=== PATIENT | female | born 1995 | race Caucasian/White ===

== ENCOUNTER 2021-09-09 15:45 | Emergency (ER) | payer SELFPAY ==
--- NOTE | 2021-09-09 15:50 | ED.URI ---
HPI - URI/Sore Throat General Chief Complaint: Upper Respiratory Infection Stated Complaint: Sore Throat Time Seen by Provider: 09/09/21 15:50 Source: patient and RN notes reviewed History of Present Illness HPI Narrative: Patient is a 26-year-old female who presents the urgent care with complaints of hoarseness and sore throat since Friday. 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 Patient states she is been gargling with salt water and using Vicks cough medication. Patient reports of a slight cough but mainly just the sore throat. Patient denies any fever, chills, nausea, vomiting. No other acute complaints. No acute distress noted. Patient aware of the plan of care. Some parts of this dictation were generated by voice recognition software and may contain typographical and/or grammatical inaccuracies. Related Data Allergies Allergy/AdvReac Type Severity Reaction Status Date / Time No Known Allergies Allergy Unverified 09/09/21 15:47 Review of Systems Review of Systems: CONSTITUTIONAL: Denies fever, chills, or sweats. EYES: Denies visual changes, redness, or discharge. ENT: Denies rhinorrhea, congestion, otalgia. Reports of sore throat CARDIOVASCULAR: Denies chest pain, palpitations, or edema. RESPIRATORY: Denies cough or dyspnea. GASTROINTESTINAL: Denies abdominal pain, nausea, vomiting, or diarrhea. GENITOURINARY: Denies dysuria or hematuria. SKIN: Denies rash or itching. MUSCULOSKELETAL: Denies back pain, joint pain, or myalgia. NEUROLOGIC: Denies headache, numbness, or weakness. All other systems reviewed are negative, except as documented in HPI. PMFSH Comments At the time of my signature, I reviewed and agree with the nursing past medical, surgical, social, and family history. There is no relevant family history pertinent to the patient complaint. Exam Narrative: GENERAL: This is a well-nourished, well-developed patient, in no apparent distress. HEAD: normocephalic, atraumatic. EYES: PERRL. Sclera clear/white. Vision is grossly intact. EARS: External ears normal, auditory canals clear and without drainage, TMs normal without perforation. Hearing grossly intact. NOSE: External nose normal with no obvious nasal discharge, nares without redness, no rhinorrhea. THROAT: Mucous membranes moist, mild to moderate erythema noted posterior oropharynx with mild bilateral tonsillar edema without exudate or ulceration. Moderate postnasal drainage. NECK: Neck supple, non-tender without lymphadenopathy CARDIOVASCULAR: Regular rate and rhythm without murmurs, gallops, or rubs. RESPIRATORY: Clear to auscultation. Breath sounds equal bilaterally. No wheezes, rales, or rhonchi. SKIN: warm, intact with no suspicious lesions or rash, good texture and turgor. NEURO: awake, alert, and oriented to person, place and time. There were no obvious focal neurologic abnormalities. EXTREMITIES: No clubbing, cyanosis, or edema. Course Vital Signs Vital signs: Vital Signs Temperature 97.9 F 09/09/21 15:56 Pulse Rate 80 09/09/21 15:56 Respiratory Rate 20 09/09/21 15:56 Blood Pressure 125/96 H 09/09/21 15:56 Pulse Oximetry 99 09/09/21 15:56 Temperature 97.9 F 09/09/21 15:56 Pulse Rate 80 09/09/21 15:56 Respiratory Rate 20 09/09/21 15:56 Blood Pressure 125/96 H 09/09/21 15:56 Pulse Oximetry 99 09/09/21 15:56 Reviewed-patient is informed that they may have pre-hypertension or hypertension based on a blood pressure reading in the department. I recommend the patient call the primary care provider listed on their discharge instructions or a physician of their choice this week to arrange follow-up for further evaluation of possible pre-hypertension or hypertension. MDM - URI/Sore Throat MDM Narrative Medical decision making narrative: Reviewed lab results with the patient. She is aware that strep swab was negative. Educ
[2021-09-09 15:56] VITALS: BP 125/96; PULSE 80; RESP 20; TEMP 36.6; O2SAT 99
== END 2021-09-09 16:34 | disposition home or self-care (01) ==
PROVIDERS: Emergency Provider Nurse Practitioner Family; PCP Family Medicine
DX: J02.9 Acute pharyngitis, unspecified (principal)
CPT/HCPCS: 87081; 87880; 99203; G0463

== ENCOUNTER 2021-12-30 15:50 | Emergency (ER) | payer OTHER, MEDICAID, SELFPAY ==
--- NOTE | 2021-12-30 15:55 | ED.URI ---
HPI - URI/Sore Throat General Chief Complaint: Upper Respiratory Infection Stated Complaint: sore throat Time Seen by Provider: 12/30/21 15:55 Source: patient and RN notes reviewed History of Present Illness HPI Narrative: Patient is a 26-year-old female who presents the urgent care with complaints of a sore throat since yesterday. 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 Patient denies of any fever, chills, nausea, vomiting or other upper respiratory complaints. Patient states she took NyQuil last night. Denies of any other ill contacts. Patient states she is not concerned about Covid. No other acute complaints. No acute distress noted. Patient aware of the plan of care. Some parts of this dictation were generated by voice recognition software and may contain typographical and/or grammatical inaccuracies. Related Data Home Medications Medication Instructions Recorded Confirmed No Home Medications 12/30/21 12/30/21 Allergies Allergy/AdvReac Type Severity Reaction Status Date / Time No Known Allergies Allergy Verified 12/30/21 16:04 Review of Systems Review of Systems: CONSTITUTIONAL: Denies fever, chills, or sweats. EYES: Denies visual changes, redness, or discharge. ENT: Denies rhinorrhea, congestion, otalgia. Reports of sore throat CARDIOVASCULAR: Denies chest pain, palpitations, or edema. RESPIRATORY: Denies cough or dyspnea. GASTROINTESTINAL: Denies abdominal pain, nausea, vomiting, or diarrhea. GENITOURINARY: Denies dysuria or hematuria. SKIN: Denies rash or itching. MUSCULOSKELETAL: Denies back pain, joint pain, or myalgia. NEUROLOGIC: Denies headache, numbness, or weakness. All other systems reviewed are negative, except as documented in HPI. PMFSH Comments At the time of my signature, I reviewed and agree with the nursing past medical, surgical, social, and family history. There is no relevant family history pertinent to the patient complaint. Exam Narrative: GENERAL: This is a well-nourished, well-developed patient, in no apparent distress. HEAD: normocephalic, atraumatic. EYES: PERRL. Sclera clear/white. Vision is grossly intact. EARS: External ears normal, auditory canals clear and without drainage, TMs normal without perforation. Hearing grossly intact. NOSE: External nose normal with no obvious nasal discharge, nares without redness, no rhinorrhea. THROAT: Mucous membranes moist. Mild erythema noted posterior oropharynx with moderate postnasal drainage NECK: Neck supple, non-tender without lymphadenopathy CARDIOVASCULAR: Regular rate and rhythm without murmurs, gallops, or rubs. RESPIRATORY: Clear to auscultation. Breath sounds equal bilaterally. No wheezes, rales, or rhonchi. SKIN: warm, intact with no suspicious lesions or rash, good texture and turgor. NEURO: awake, alert, and oriented to person, place and time. There were no obvious focal neurologic abnormalities. EXTREMITIES: No clubbing, cyanosis, or edema. Course Course Level of Care: Express Care Visit Vital Signs Vital signs: Vital Signs Temperature 97.8 F 12/30/21 16:00 Pulse Rate 83 12/30/21 16:00 Respiratory Rate 16 12/30/21 16:00 Blood Pressure 172/69 H 12/30/21 16:00 Pulse Oximetry 100 12/30/21 16:00 Temperature 97.8 F 12/30/21 16:00 Pulse Rate 83 12/30/21 16:00 Respiratory Rate 16 12/30/21 16:00 Blood Pressure 172/69 H 12/30/21 16:00 Pulse Oximetry 100 12/30/21 16:00 Reviewed-patient is informed that they may have pre-hypertension or hypertension based on a blood pressure reading in the department. I recommend the patient call the primary care provider listed on their discharge instructions or a physician of their choice this week to arrange follow-up for further evaluation of possible pre-hypertension or hypertension. MDM - URI/Sore Throat MDM Narrative Medical decision making narrative: Reviewed lab results with the patient. She is aware
[2021-12-30 16:00] VITALS: BP 172/69; PULSE 83; RESP 16; TEMP 36.6; O2SAT 100
== END 2021-12-30 16:20 | disposition home or self-care (01) ==
PROVIDERS: Emergency Provider Nurse Practitioner Family; PCP Family Medicine
DX: J02.9 Acute pharyngitis, unspecified (principal)
CPT/HCPCS: 87081; 87880; 99213; G0463

== ENCOUNTER 2024-03-16 12:57 | Emergency (ER) | payer MEDICAID, SELFPAY ==
[2024-03-16 13:06] VITALS: BP 136/82; PULSE 71; RESP 20; TEMP 36.8; O2SAT 100
--- NOTE | 2024-03-16 13:34 | ED.GENADULT ---
HPI - General Adult General Chief complaint: Dental/Oral Stated complaint: Tooth pain Time Seen by Provider: 03/16/24 13:34 Source: patient, RN notes reviewed and old records reviewed Mode of arrival: ambulatory Limitations: no limitations History of Present Illness HPI narrative: 46-year-old female express care for complaint of right lower molar pain radiating into right jaw for 1 week. Patient states that the tooth fractured last week while eating. Patient has been treating at home with ibuprofen and Orajel with some relief. Patient states that she has a dentist appointment set for April 19 as that was the earliest that she could get in. Patient denies fever, nausea, foul taste in, allergies. Patient able to tolerate fluids by mouth. Related Data Allergies Allergy/AdvReac Type Severity Reaction Status Date / Time No Known Allergies Allergy Verified 03/16/24 13:15 Review of Systems Review of Systems: All systems reviewed & are unremarkable except as noted in HPI and below Constitutional: Constitutional: Reports no additional constitutional complaints Eyes: Eyes: Reports no additional eye complaints ENT: Reports as per HPI and Reports dental pain Cardiovascular: Cardiovascular: Reports no additional cardiovascular complaints, Denies chest pain and Denies dyspnea Respiratory: Respiratory: Reports no additional respiratory complaints, Denies cough and Denies dyspnea Musculoskeletal: Musculoskeletal: Reports no additional musculoskeletal complaints Neurologic: Reports system reviewed and no additional complaints, except as documented Psychiatric: Psychiatric: Reports no additional psychiatric complaints PMFSH Comments At the time of my signature, I reviewed and agree with the nursing past medical, surgical, social, and family history. There is no relevant family history pertinent to the patient complaint. Exam Const: General: cooperative, comfortable, no acute distress, alert and well nourished Nutritional Appearance: well nourished Orientation/consciousness: patient oriented x3 Limitations: no limitations HENMT: Head: normal to inspection Ears: external ears normal Face/Nose/Sinus: Normal external nose present, Normal nares present, normal facial exam, No erythema and No edema Face and sinus: normal facial exam, no erythema and no edema Mouth: Yes Normal oral and palatal mucosa present Teeth and gingiva: abnormal tooth and associated gingiva, caries, gingiva abnormal edematous and diffusely erythematous; without any purulent discharge, multiple restorations and poor dentition Teeth image: 1. Fractured tooth Eyes: General: appearance normal, both eyes and all related structures Neck: Neck: normal visual inspection, full ROM and no meningeal signs Lymphatic: no lymphadenopathy noted and no lymphedema noted Chest: Chest palpation & inspection: normal inspection of the chest Resp: Effort & Inspection: normal respiratory effort and able to speak in complete sentences Auscultation: clear to auscultation bilaterally Cardio: Jugular venous distension: no JVD Rate: regular rate Rhythm: regular rhythm Back/Spine/Pelvis: Cervical Spine: cervical ROM normal Skin: General skin exam: normal color, no rashes or lesions noted and turgor normal Neuro: General: patient oriented x3, gait normal, moves all extremities and no meningeal signs Speech: normal speech Gait exam (Neuro): Normal gait present Extrem: General: normal to inspection, full ROM and capillary refill normal Psych: Appearance: grossly normal and well kempt Course Course Emergency Course: Some parts of this dictation were generated by voice recognition software and may contain typographical and/or grammatical inaccuracies. Level of Care: Express Care Visit Vital Signs Vital signs: Vital Signs Temperature 36.8 C 03/16/24 13:06 Pulse Rate 71 03/16/24 13:06 Respiratory Rate 20 03/16/24 13:06 Blood Pressure 136/82
== END 2024-03-16 13:43 | disposition home or self-care (01) ==
PROVIDERS: Emergency Provider Nurse Practitioner Family; PCP Family Medicine
DX: K04.7 Periapical abscess without sinus (principal); S02.5XXA Fracture of tooth (traumatic), initial encounter for closed fracture; X58.XXXA Exposure to other specified factors, initial encounter
CPT/HCPCS: 99213; G0463

== ENCOUNTER 2024-07-01 12:17 | Emergency (ER) | payer OTHER, SELFPAY ==
[2024-07-01 12:26] VITALS: BP 127/78; PULSE 85; RESP 20; TEMP 36.3; O2SAT 100
--- NOTE | 2024-07-01 13:11 | ED.GENADULT ---
HPI - General Adult General Chief complaint: Nausea/Vomiting/Diarrhea Stated complaint: flu symptoms Time Seen by Provider: 07/01/24 13:11 Source: patient, RN notes reviewed and old records reviewed Mode of arrival: ambulatory Limitations: no limitations History of Present Illness HPI narrative: 29-year-old female presents to the [facility] with complaints of abdominal discomfort, nausea vomiting diarrhea. Symptoms started about 3 days ago. Worsening symptoms today, 3 episodes of a straight water diarrhea 2 episodes of vomiting. Denies any urinary symptoms. States that the day before was at a [employer] and ate some hot dogs Related Data Home Medications Medication Instructions Recorded Confirmed No Home Medications 07/01/24 07/01/24 Allergies Allergy/AdvReac Type Severity Reaction Status Date / Time No Known Allergies Allergy Verified 07/01/24 12:50 Review of Systems Review of Systems: All systems reviewed & are unremarkable except as noted in HPI and below Constitutional: Constitutional: Reports no additional constitutional complaints Eyes: Eyes: Reports no additional eye complaints ENT: Reports system reviewed and no additional complaints, except as documented Cardiovascular: Cardiovascular: Reports no additional cardiovascular complaints, Denies chest pain and Denies dyspnea Respiratory: Respiratory: Reports no additional respiratory complaints, Denies chest congestion, Denies cough and Denies dyspnea Gastrointestinal: Gastrointestinal: Reports as per HPI, Reports abdominal pain, Reports diarrhea, Reports nausea and Reports vomiting Musculoskeletal: Musculoskeletal: Reports no additional musculoskeletal complaints Integumentary/Breasts: Skin/Breast: Reports system reviewed and no additional complaints, except as docu Neurologic: Reports system reviewed and no additional complaints, except as documented Psychiatric: Psychiatric: Reports no additional psychiatric complaints Allergic/Immunologic: Allergic/Immunologic: Reports no additional allergic/immunologic complaints PMFSH Comments At the time of my signature, I reviewed and agree with the nursing past medical, surgical, social, and family history. There is no relevant family history pertinent to the patient complaint. Exam Const: General: cooperative, healthy appearing, comfortable, no acute distress, well developed, alert and well nourished Nutritional Appearance: well nourished and obese morbidly obese Orientation/consciousness: patient oriented x3 Limitations: no limitations HENMT: Head: normal to inspection Ears: hearing grossly normal bilaterally and external ears normal Face/Nose/Sinus: Normal external nose present, Normal nares present, Normal nasal mucous membranes and turbinates present, normal facial exam and face symmetric Face and sinus: normal facial exam and face symmetric Mouth: Yes Normal oral and palatal mucosa present, Yes lip normal and Yes tongue normal Eyes: General: appearance normal, both eyes and all related structures Alignment and Position: alignment normal Periorbital: periorbital findings normal Pupils: Equal, round and reactive pupils present EOM: EOMs intact bilaterally Neck: Neck: normal visual inspection, full ROM, no lymphadenopathy and no meningeal signs Chest: Chest palpation & inspection: normal inspection of the chest Resp: Effort & Inspection: normal respiratory effort and able to speak in complete sentences Auscultation: clear to auscultation bilaterally, no crackles, no rales, no rhonchi and no wheezes Cardio: Rate: regular rate Rhythm: regular rhythm GI: GI Palp: Yes abdominal tenderness (Right upper quadrant/epigastric) and Yes Soft to palpation Auscultation: normal bowel sounds : General: Yes no CVA tenderness Skin: General skin exam: normal color and no rashes or lesions noted Lesions: no lesions Rashes: no rashes Trauma: no lacerations or abrasions Wounds: no wounds Neuro: Gen
[2024-07-01 13:22] LABS: EDINFLUASCREEN Negative; EDINFLUBSCREEN Negative
== END 2024-07-01 13:30 | disposition short-term general hospital (02) ==
PROVIDERS: Emergency Provider Nurse Practitioner; PCP Family Medicine
DX: R10.11 Right upper quadrant pain (principal); Z20.822 Contact with and (suspected) exposure to COVID-19
CPT/HCPCS: 87426; 87804; 99213; G0463

== ENCOUNTER 2025-06-26 10:12 | Emergency (ER) | payer OTHER, SELFPAY ==
--- NOTE | 2025-06-26 10:13 | ED.URI ---
HPI - URI/Sore Throat General Chief Complaint: Upper Respiratory Infection Stated Complaint: Sore Throat/Cough Time Seen by Provider: 06/26/25 10:33 Source: patient and RN notes reviewed Mode of arrival: ambulatory Limitations: no limitations History of Present Illness HPI Narrative: 30-year-old female presents concern for 2 day history of runny nose, cough and sore throat when she coughs. She denies fever. Reports body aches and mild headache. She has taken antihistamines and ibuprofen. She denies known sick contacts. MD elicited complaint: cough and sore throat Related Data Allergies Allergy/AdvReac Type Severity Reaction Status Date / Time No Known Allergies Allergy Verified 07/01/24 12:50 Review of Systems Review of Systems: CONSTITUTIONAL: Denies malaise, chills, sweats, or fever. EYES: Denies visual changes, redness, or discharge. ENT: Reports rhinorrhea, congestion, and sore throat. CARDIOVASCULAR: Denies chest pain, palpitations, or edema. RESPIRATORY: Reports cough. Denies dyspnea. GASTROINTESTINAL: Denies abdominal pain, nausea, vomiting, diarrhea SKIN: Denies rash or itching. MUSCULOSKELETAL: Reports myalgia. NEUROLOGIC: Reports headache. All systems reviewed & are unremarkable except as noted in HPI and below PMFSH Comments At time of signature, agree with nursing past medical, surgical, social and family history. There is no relevant family history pertinent to the presenting complaint Exam Narrative: GENERAL: Well-appearing, well-nourished, and in no acute distress. HEAD: Normocephalic EYES: PERRLA, conjunctivae clear ENT: Nares clear, for discharge. Mucous membranes moist. TM pearly estevez with sharp light reflex bilaterally; no tragal tenderness. Oropharynx not erythematous without lesions. Tonsils not enlarged and without exudate, no drooling, no hoarseness, no trismus, uvula midline. NECK: Supple. No lymphadenopathy CHEST: Clear to auscultation, breath sounds equal. No wheezing, rhonchi, rales, or stridor. No respiratory distress, speaks in full sentences. Cough noted HEART: Regular rate and rhythm. No murmur heard. SKIN: Warm, dry, no rash. NEURO: Alert and oriented x3. PSYCH: Normal mood and affect Course Course Emergency Course: Patient is aware of diagnosis, understands and agrees to treatment plan. Anticipatory guidance given. Patient agrees to follow-up as directed and is aware of reasons to seek care at the emergency department. Portions of this record may have been created with voice recognition software Level of Care: Express Care Visit Vital Signs Vital signs: Reviewed. MDM - URI/Sore Throat MDM Narrative Medical decision making narrative: Differential diagnosis considered: Neal virus, strep pharyngitis, allergic rhinitis, upper respiratory tract infection, sinusitis, rhinosinusitis, nasopharyngitis. viral pharyngitis, otitis media, otitis externa, pneumonia, bronchitis, viral cough syndrome, viral syndrome, and influenza. Exam findings show no acute concerns or changes; patient is non-toxic appearing and is in no distress. Patient is appropriate for outpatient treatment and follow-up. Lab Data Attestation: I reviewed the patient's lab results. Critical Care Time Critical Care Time Critical Care Time: No Discharge Plan Discharge Clinical Impression: Upper respiratory infection Patient Disposition: Home Condition: Stable Instructions: Upper Respiratory Infection (ED) Additional Instructions: Viral illness may last between 7-21 days; antibiotics do not cure viral illness and are NOT recommended at this time. Recommend antihistamine such as Benadryl at night time and Zyrtec or [place] during the day Cough syrup may cause drowsiness; avoid driving or take it at night time. Also, recommend symptomatic treatment includes: rest, fluids, and increase humidity of the air at home. Recommend Acetaminophen as directed on the bottle to reduce fever, pain, headache. Avoid smoking/second-hand smoke. Please schedule a follow-up visit with your personal physician for further evaluation and treatment within 3-5days. Including recheck and discussion of your blood pressure. If your symptoms persist, change or worsen significantly before you can contact your personal physician then please, without delay, go to the emergency department for further evaluation. Patient Language: Italian Prescriptions: New ipratropium bromide 21 mcg (0.03 %) spray,non-aerosol 2 spray NASAL TID PRN (Reason: nasal drainage) Qty: 30 0RF Rx Instructions: administer into each nostril promethazine-DM 6.25-15 mg/5 mL syrup 5 ml PO Q4-6H PRN (Reason: cough) Qty: 120 0RF methylprednisolone [Medrol (Macho)] 4 mg tablets,dose pack See Rx Instructions .ROUTE .COMPLEX Qty: 21 0RF Rx Instructions: orally per package directions Follow-up/Referrals: Harms,Feroz Wheeler M.D. [Primary Care Provider] Time of Disposition: 10:38
--- OUTSIDE RECORDS SUMMARY | 2025-06-26 10:16 | XMS_ITS | Clinical Summary ---
Author Organization [facility] Address [address] [place] [address] Care Team Providers Care Alemite Operator Name Role Phone Feroz Sandhu MD Primary Care Provider [phone] Allergies No known active allergies Medications No known medications Immunizations Immunization Administration Dates Next Due TB Skin Test 12/10/2021 Social History Tobacco Use Types Packs/Day Years Used Date Smoking Tobacco: Never Smokeless Tobacco: Never Tobacco Cessation:Counseling Given: Not Answered Comments Unknown Sex and Gender Information Value Date Recorded Sex Assigned at Not on file Legal Sex Female 8:53 PM CDT Gender Identity Not on file Sexual Orientation Not on file Last Filed Vital Signs Vital Sign Reading Time Taken Comments Blood Pressure 151/113 01/19/2025 7:51 PM CDT Pulse 90 01/19/2025 7:51 PM CDT Temperature 36.8 C (98.3 F) 01/19/2025 3:48 PM CDT Respiratory Rate 18 01/19/2025 7:51 PM CDT Oxygen Saturation 100% 01/19/2025 7:51 PM CDT Inhaled Oxygen Concentration - - Weight 172.4 kg (380 lb) 01/19/2025 3:48 PM CDT Height 165.1 cm (5' 5) 01/19/2025 3:48 PM CDT Body Mass Index 63.24 01/19/2025 3:48 PM CDT Plan of Treatment Health Maintenance Due Date Last Done Comments Hepatitis C Virus (HCV) Screening 1995 Pap Smear 2016 SARS-COV-2 Immunization ( season) 2024 05/24/2022 Cervical Cancer Screening (CCS) 2025 HPV/Cotest 2025 Influenza Immunization (#1) 2025 10/03/2008 Respiratory Syncytial Virus (RSV) Immunization (Adult) (1 - 1-dose 75+ series) 2070 Hepatitis B Immunization Completed 996, 1995, 1995 Meningococcal Immunization (ACWY) Aged Out 01/23/2009 No longer eligible based on patient's age to complete this topic Human Papillomavirus (HPV) Immunization Completed 09/14/2009, 06/06/2009, 01/23/2009, Additional history exists DTaP/Tdap/Td Immunization Discontinued 2019, 07/09/2006, 06/03/2000, Additional history exists TdaP Immunization Completed 03/30/2020, 07/09/2006 Pneumococcal Immunization Combined Aged Out No longer eligible based on patient's age to complete this topic Rotavirus Immunization Aged Out No lo nger eligible based on patient's age to complete this topic Insurance MEDICAID [employer] Care Teams Alemite Operator Relationship Specialty Start Date End Date Feroz Sandhu [place] [address] PCP - General Internal Medicine 12/10/21
--- OUTSIDE RECORDS SUMMARY | 2025-06-26 10:16 | XMS_ITS | Clinical Summary ---
Author Organization [facility] [place] [facility] lt Address [address] [place] [address] Care Team Providers Care Material Handler 1St Shift Name Role Phone Feroz Sandhu MD Primary Care Provider [phone] [phone] Allergies No known active allergies Medications etonogestreL (Nexplanon) 68 mg implant Nexplanon 68 mg subdermal implant Inject by subcutaneous route. Active celecoxib (CeleBREX) 200 mg capsuleIndicat ions:Pain Take 1 capsule (200 mg total) by mouth daily 30 capsule 025 Discontin ued(Patie nt Reported) Active Problems Problem Noted Date Diagnosed Date Encounter for pre-employment health screening ex amination 06/02/2025 Assessment & Plan (06/02/2025 11:13 AM CDT): Medically cleared for work at the [facility] [employer]. TB test was done last July. Work form filled out. Orders: CBC with auto differential; Future Comprehensive metabolic panel; Future Lipid panel; Future Class 3 severe obesity due t o excess calories without serious comorbidity with body mass index (BMI) of 60.0 to 69.9 in adult 01/24/2025 Assessment & Plan (06/02/2025 11:13 AM CDT): Encouraged heart healthy diet and lifestyle. Advised 150 min/week of aerobic exercise. Assessment & Plan (03/04/2025 1:28 PM CDT): Encouraged heart healthy diet and lifestyle. Advised 150 min/week of aerobic exercise. Assessment & Plan (01/24/2025 9:24 AM CDT): Reivewed impact of increaed BMI on low back pain and encourage healthy food chocies and will target response. Screening for lipoid disorders 01/26/2024 Assessment & Plan (06/02/2025 11:13 AM CDT): Lipid panel ordered. Will continue to monitor. Orders: Lipid panel; Future Assessment & Plan (01/26/2024 8:39 AM CDT): Lipid panel ordered. Will plan accordingly once results are received. Lifestyle recommendations reviewed. Viral URI with cough 01/26/2024 Assessment & Plan (01/26/2024 8:40 AM CDT): Negative flu, COVID, strep swabs today. Reviewed OTC measures to utilize. Ensure p.o. hydration. RTC if worsening or not resolving. Red flags reviewed. Chronic right-sided low back pain with right-lorraine ed sciatica 01/26/2024 Assessment & Plan (06/02/2025 11:13 AM CDT): Not currently a problem. Will be seeing pain management soon. No longer taking Celebrex. Will continue to monitor. Assessment & Plan (06/02/2025 9:31 AM CDT): >>ASSESSMENT AND PLAN FOR CHRONIC BILATERAL LOW BACK PAIN WITHOUT SCIATICA WRITTEN ON 01/26/2024 8:40 AM BY YUNG DALE NP Recommend ibuprofen and discussed the scheduling and side effects. Also recommend heat/ice. Recommend gentle stretching exercises. Will order x-rays and refer for physical therapy. Will monitor response. Red flags reviewed. Assessment & Plan (03/04/2025 1:28 PM CDT): No relief with Medrol dose pack, Meloxicam, and other conservative measures. CT and xray showed no concerns. Will refer to pain management and start on Tramadol while waiting to get into pain. Will also change to Celebrex. Will continue with PT. Discussed Tramadol is controlled substance and will need to be seen every 3 months to get refills. Discussed risks and side-effects with medications. Will continue to monitor. Orders: Ambulatory referral to Pain Management; Future traMADoL (ULTRAM) 50 mg tablet; Take 1 tablet (50 mg total) by mouth every 8 (eight) hours as needed for pain celecoxib (CeleBREX) 200 mg capsule; Take 1 capsule (200 mg total) by mouth daily Assessment & Plan (01/24/2025 9:25 AM CDT): Continue on prednisone course and cyclobenzaprine. WIll add PT and melocima to regimen and encourage topical agents. Reivewed red flag s/s. Given finding of prbc in urin will also check ct scan to evauate for renal stones and lumbar disc disease. Marijuana user 01/16/2024 Overview (01/16/2024): Encourage cessation care following vaginal delivery 05/28 Overview (05/29/2020): # ID: Afebrile. No signs/symptoms of infection. COVID-19 negative. # Heme: EBL 300 mL. Hemodynamically stable. #Uterine atony: s/p Hemabate x1 dose # CV/Pulm: Gestational hypertension - Blood pressures well controlled on no agents. Asymptomatic, denies ARCE/RUQ pain/vision changes. CBC/CMP wnl, UPC 0.1. Declines MyHeart at this time. # GI/: Tolerating PO. Voiding spontaneously. # Pain: Controlled with above regimen. # Post DVT prophylaxis: The patient has the following MAJOR risk factors BMI >/= 40 and the following MINOR risk factors none. enoxaparin 40 mg BID ordered for VTE prophylaxis. # MOC: Desires nexplanon placement prior to discharge. # MOF: Formula feeding # Disposition: Continue routine care Elevated BP X 1 03/30/2020 Overview (03/30/2020): BP at 29 weeks with primary OB of 150/80. Repeat was within normal. No hitsory of chronic HTN with normal Bps at start of . Normotensive since then. Patient is at higher risk of hypertensive disorder but does not meet criteria at present. Will continue to follow. Assessment & Plan (05/18/2020 2:28 PM CDT): Normotensive today. Assessment & Plan (05/02/2020 1:16 PM CDT): BP wnl today, denies symptoms of preE Assessment & Plan (04/17/2020 2:22 PM CDT): BP wnl today, denies symptoms of preE Family history of cystic fibrosis 03/24/2020 Overview (03/30/2020): Distant uncle with cystic fibrosis. Reviewed inheritance pattern. Patient declines carrier screening. Refused influenza vaccine 11/20/2018 Assessment & Plan (10/04/2019 3:19 PM EMAIL MARKETING MANAGER): Discussed and the patient refuses immunization today. Educated regarding the need to vaccinate for personal protection and to limit the viruses in the community to protect those most vulnerable. Periumbilical abdominal pain 10/14/2012 Resolved Problems Problem Noted Date Diagnosed Date Resolved Date Pharyngitis 01/16/2024 01/16/2024 Low-lying placenta 01/16/2024 Overview (01/16/2024): Precautions given Follow up sonogram at 28 weeks. Morbid obesity 01/16/2024 01/26/2024 Encounter for induction of labor 05/26/2020 01/26/2024 Overview (05/26/2020): 1. Elective Induction of Labor: Admit to L&D. Consents signed and placed in chart. Send CBC/T&S. Induction of labor with misoprostol. 2. FWB: Continuous monitoring. Reactive NST 3. ID: HIV negative. GBS negative. Membrane Status: intact. 4. Indications for UDS: none 5. MOF: Plans to formula feed. 6. MOC: Plans to use nexplanon for contraception. 7. Pain management: Desires epidural when pain intolerable. 8. Post DVT prophylaxis: The patient has the following MAJOR risk factors BMI >/= 40 and the following MINOR risk factors none. enoxaparin 40 mg BID to be ordered for VTE prophylaxis. 9. COVID Test Status: Preadmission testing negative 10. MO: BMI 57. GTT negative 11. Isolated elevated BP: SBP 150s in clinic at 29 weeks, normotensive since. For labs if meets criteria for gHTN Pruritic rash 04/20/2020 01/26/2024 Overview (04/20/2020): Patient reports pruitic rash that occurs every year in the summer. Desires referral to derm. Obesity complicating pregnan cy, unspecified trimester 03/24/2020 01/26/2024 Overview (04/17/2020): BMI 60 Previously counseled Reviewed IOM weight gain guidelines. Patient reports losing 30lbs during this . Intermittent N/V, but tolerating three meals a day. Declines nutrition referral but if continued weight loss, will consider. Plan for weekly BPPs (calling referring office to see if she can do these closer to home) Assessment & Plan (05/18/2020 2:28 PM CDT): BPP 8/8 today. Low lying placenta, antepartum 03/24/2020 04/13/2020 Overview (03/30/2020): Resolved on today's US Supervision of high-risk pre gnancy, unspecified trimester 03/24/2020 01/26/2024 Overview (05/17/2020): [x] Full M Care; Referring Provider: Dr Kenji Goodwin [phone] [x] Dating Criteria: US 11/18/19 with LAZARO 06/02/20 [x] Labs: Rh [A+], Ab [negative], Rubella [immune], HIV [non-reactive], HepBSAg [negative], RPR [non-reactive], GC/CT [negative/negative] [x] Genetic Screening: declined [x] CBC/Hgb 12.6/37.8/plt 333 [x] Early 1hr GTT (if indicated) not performed [x] UCx: 11/23/19 negative [x] Pap: 11/23/19 NILM [] LD ASA (if indicated) starting at 12 weeks: 2nd Tri Labs: [] Anatomy ultrasound: Incomplete given advanced gestation [x] CBC/1hr gtt at 24-28wks: 02/16/20: 10.1/31.1/plt 275; GTT 111 [x] Tdap (27-36wks): given today 3rd Tri Labs: [] CBC/HIV/RPR: ordered [x] GBS: negative Counselling [x] MOD: Desires 39wk IOL scheduled 05/25/2020 [x] COVID testing: information provided, inbasket sent and will get testing in [facility] [x] Place of delivery: [facility] [x] MOC: counseled desires Nexplanon [x] Method of feeding: planned to bottle feed, counseling today regarding breast feeding, patient considering [x] Chainstitch Hemmer: discussed [x] PP Depression Discussed: *Patient requests female providers, reviewed that we can try to accommodate this at scheduled visits however cannot guarantee given group practice* Assessment & Plan (05/18/2020 2:28 PM CDT): Anticipatory guidance provided. IOL scheduled. Pt aware of COVID testing, already scheduled. Nexplanon PP. 11/09/2019 01/16/2024 Positive test 10/04/201901/02 Assessment & Plan (10/04/2019 3:20 PM EMAIL MARKETING MANAGER): POSITIVE urine hcg in office today. To call [facility] to set up appt. To p/u otc vitamins. Aware to improve diet, increase activity. Watch intake. Decrease caffeine, increase water intake. Not ETOH/smoking (does not smoke any longer). Menstrual period late 10/04/20192023 Viral URI 10/04/2019 01/26/2024 Assessment & Plan (10/04/2019 3:19 PM EMAIL MARKETING MANAGER): You will need to take over the counter medications: Advise to use claritin and nasal saline to help with congestions and mucus. Add flonase 1 spray per nostril daily for the next 2 weeks. Drink plenty of fluids. May take Tylenol for pain. Aware to read labels for medications safe w/. Contact the office if not better in a few days or if getting worse. If symptoms worsen or you experience shortness of breath, return to clinic or go to Er. Class 3 severe obesity due t o excess calories without serious comorbidity with body mass index (BMI) of 60.0 to 69.9 in adult 10/04/2019 Assessment & Plan (10/04/2019 3:20 PM EMAIL MARKETING MANAGER): Reviewed need to lose weight, reviewed health benefits. Reviewed recommendations for daily intake & activity 20-30 minutes/day. Discussed healthy diet and importance of regular physical activity. Morbid obesity with BMI of 50.0-59.9, adult 11/20/2018 01/26/2024 Obesity 10/14/2012 01/26/2024 Diarrhea 10/14/2012 01/26/2024 Encounters Date Type Department Care Team Description 06/02/2025 11:00 AM CDT [facility] Visit [facility] [address] [phone] Romi Redman NP Encounter for pre-employment health screening examination (Primary Dx); Chronic right-sided low back pain with right-sided sciatica; Encounter for screening for lipid disorder; Class 3 severe obesity due to excess calories without serious comorbidity with body mass index (BMI) of 60.0 to 69.9 in adult 04/26/2025 Orders Only [facility] [address] [place] [address] [facility] [address] [place] [id number] Feroz Sandhu MD Low back pain radiating to right lower extremity (Primary Dx) 04/11/2025 Orders Only [facility] [address] [phone] Feroz Sandhu MD Low back pain radiating to right lower extremity 04/07/2025 Telephone [facility] [address] [phone] Feroz Sandhu MD Recommendation Request from Last 3 Months Immunizations Immunization Administration Dates Next Due DTP 06/03/2000,05/26/1997 DTP / HiB 1995,1995,1995 DTaP 5 Pertussis 06/03/2000, 7,1995,1995, 1995 HPV, Bivalent 01/23/2009 HPV, Unspecified 09/14/2009,06/06/2009, 9 Hep A, Unspecified 03/13/2006,06/04/2005 Hep B, Adolescent or Pediatric 1995,1994,1995 Hep B, Unspecified 1995,1995, 995 HiB 06/30/1997,1995,1995 ,1995 IPV 06/03/2000,1995,1995 ,1995 Influenza, Unspecified 06/02/2025(Deferr ed: Patient Refused),03/04/2025(Deferred: Patient Refused),07/27/2024(Deferred: Patient Refused),07/04/2024(Deferred: Patient Refused),07/04/2024(Deferred: Patient Refused),01/26/2024(Deferred: Patient ill today),10/04/2019(Deferred: Patient Refused),10/04/2019(Deferred: Patient Refused),11/20/2018(Deferred: Patient Refused),11/20/2018(Deferred: Patient Refused),11/20/2018(Deferred: Patient Refused),11/03/2018(Deferred: Patient Refused),11/04/2017(Deferred: Patient Refused),11/03/2017(Deferred: Patient Refused),10/03/2008 MMR 06/03/2000,05/26/1997 Meningococcal ACWY, Unspecified 01/23/2009 OPV 1995,1995,1995 PPD TEST 12/10/2021,09/12/2020 Tdap 03/30/2020,07/09/2006 Varicella 01/23/2009,06/30/1997 Surgical History Surgery Date Site/Laterality Comments ESOPHAGOGASTRODUODENOSCOPY Diagnostic Esophagogastroduodenoscopy - (Added by TW Conv) Medical History Medical History Date Comments Melena Hematochezia - ( Added by TW Conv) Personal history of other sp ecified conditions History of abdominal pain - (Added by TW Conv) 11/09/2019 Pharyngitis 01/16/2024 Family History Medical History Relation Name Comments Hypertension Father Duarte Diabetes Father's Sister Cris Archer Hyperlipidemia Father's Sister Cris Archer Hypertension Father's Sister Cris Archer Thyroid disease Father's Sister Cris Archer Anxiety disorder Mother Melanie Torres Depression Mother Melanie Torres Hyperlipidemia Mother Melanie Torres Osteoporosis Mother Melanie Torres Thyroid disease Mother Melanie Torres Relation Name Status Comments Father Duarte Alive Father's Sister Cris Archer Alive Mother Melanie Torres Alive Social History Tobacco Use Types Packs/Day Years Used Date Smoking Tobacco: Former Cigarettes Q uit: 09/20/2019 Smokeless Tobacco: Never Alcohol Use Standard Drinks/Week Comments Yes 0 (1 standard drink = 0.6 oz pur e alcohol) social drinker, weekends [facility] [employer] Answer Date Recorded In the past 12 months has e [employer] gas, oil, or water [employer] threatened to shut off services in your home? No 01/24/2025 Humiliation, Afraid, Rape, and Kick questionnair e Answer Date Recorded Within the last year, have y ou been afraid of your partner or ex-partner? No 01/24/2025 Within the last year, have y ou been humiliated or emotionally abused in other ways by your partner or ex-partner? No Within the last year, have y ou been kicked, hit, slapped, or otherwise physically hurt by your partner or ex-partner? No 01/24/2025 Within the last year, have y ou been raped or forced to have any kind of sexual activity by your partner or ex-partner? No 01/24/2025 Social Connection and Isolation Panel Answer Date Recorded In a typical week, how many times do you talk on the phone with family, friends, or neighbors? More than three times a week 01/24/2025 How often do you get togethe r with friends or relatives? More than three times a week 01/24/2025 How often do you attend chur ch or gnosticism services? Never 01/24/2025 Do you belong to any clubs o r organizations such as holiness groups, unions, fraternal or athletic groups, or school groups? No 01/24/2025 How often do you attend meet ings of the clubs or organizations you belong to? Never 01/24/2025 Are you , , di vorced, , never , or living with a partner? Never 01/24/2025 AUDIT-C Answer Date Recorded Q1: How often do you have a drink containing alc ohol? Monthly or less 01/24/2025 Q2: How many drinks containi ng alcohol do you have on a typical day when you are drinking? 1 or 2 01/24/2025 Q3: How often do you have si x or more drinks on one occasion? Never 01/24/2025 Overall Financial Resource Strain (CARDIA) Answe r Date Recorded How hard is it for you to pa y for the very basics like food, housing, medical care, and heating? Somewhat hard 01/24/2025 PHQ-2 Answer Date Recorded PHQ-2 Total Score (If total score is 3 or more points, staff should administer the PHQ-9) 0 06/02/2025 [facility] - Occupational Stress Questionnaire Answer Date Recorded Do you feel stress - tense, restless, nervous, or anxious, or unable to sleep at night because your mind is troubled all the time - these days? To some extent 01/24/2025 Exercise Vital Sign Answer Date Recorde d On average, how many days pe r week do you engage in moderate to strenuous exercise (like a brisk walk)? 2 days 01/24/2025 On average, how many minutes do you engage in exercise at this level? 10 min 01/24/2025 Hunger Vital Sign Answer Date Recorded Within the past 12 months, y ou worried that your food would run out before you got the money to buy more. Never true 01/25/20 25 Within the past 12 months, t he food you bought just didn't last and you didn't have money to get more. Never true 01/24/2025 PRAPARE - Transportation Answer Date Re corded In the past 12 months, has l ack of transportation kept you from medical appointments or from getting medications? No 01/02 In the past 12 months, has l ack of transportation kept you from meetings, work, or from getting things needed for daily living? No 01/24/2025 PHQ-9 Answer Date Recorded PHQ-9 Total Score 1 01/24/2025 Housing Stability Vital Sign Answer Dameon e Recorded In the last 12 months, was t here a time when you were not able to pay the mortgage or rent on time? No 01/24/2025 In the past 12 months, how m any times have you moved where you were living? 0 01/24/2025 At any time in the past 12 m [facility], were you homeless or living in a custodial (including now)? No 01/24/2025 Personal Safety Answer Date Recorded Have you ever been in or are you currently in a harmful physical or emotional relationship or is someone making you feel afraid or unsafe? Denies 07/01/2024 Comments Unknown Sex and Gender Information Value Date Recorded Sex Assigned at Not on file Legal Sex Female 8:12 PM EMAIL MARKETING MANAGER Gender Identity Not on file Sexual Orientation Not on file Obstetrics History Para Term AB IAB SAB Ectopic Multiple Livin g Live Births 1 1 1 0 1 1 Date Outcome GA Total Labor Labor/2nd/3rd Weight Sex Type Anes PTL Frida A1 A5 Name Clin 2019 Term 39w 2d 49h 17m 47h 22m/1h 45m/0h 10m 3.44 kg (7 lb 9.3 oz) M Vag-S pont Epidur al N Livin g 8 9 EMSNOBLE SCOTT , Lyle Mi MD Complications:None Delivery Location:[facility] Main C ampus ([facility] 58LD) Last Filed Vital Signs Vital Sign Reading Time Taken Comments Blood Pressure 124/78 06/02/2025 11:02 AM CDT Pulse 77 06/02/2025 11:02 AM CDT Temperature 36.6 C (97.9 F) 01/24/2025 8:48 AM CDT Respiratory Rate 18 06/02/2025 11:0 2 AM CDT Oxygen Saturation 99% 06/02/2025 11: 02 AM CDT Inhaled Oxygen Concentration - - Weight 169.9 kg (374 lb 9.6 oz) 025 11:02 AM CDT Height 165.1 cm (5' 5) 06/02/2025 11:0 2 AM CDT Body Mass Index 62.34 06/02/2025 11:02 AM CDT Plan of Treatment Health Maintenance Due Date Last Done Comments Cervical Cancer Screening 1995 Hepatitis C Screening 1995 Influenza Vaccine (#1) 2025 10/03/2008 Regular Well Visit/Exam 18-64 07/27/2025 07/27/2024, 11/20/2018 Depression Screening 06/02/2026 06/02/2025, 03/04/2025, 01/24/2025, Additional history exists DTaP/Tdap/Td Vaccine (8 - Td or Tdap) 03/30/2030 03/30/2020, 07/09/2006, 06/03/2000, Additional history exists Hepatitis B Screening Completed 1995 , 1995, 1995, Additional history exists Varicella Vaccines Completed 01/23/2009, 06/30/1997 HPV Vaccines Completed 09/14/2009, 0802/2009, 01/23/2009, Additional history exists Pneumococcal vaccine <65 Aged Out No longer eligible based on patient's age to complete [place] [address] [employer] [facility] [employer] [facility] [employer] [facility] Advance Directives For more information, please contact: [phone] * Full Code (Latest Code Status on File) Date Activated Date Inactivated Comments 05/28/2020 2:56 PM 05/30/2020 11:27 PM * Full Code Date Activated Date Inactivated Comments 05/26/2020 11:52 AM 05/28/2020 2:56 PM Full CPR in case of cardiopulmonary arrest Care Teams Material Handler 1St Shift Relationship Specialty Start Date End Date [place] [address] PCP - General 03/30/20
--- OUTSIDE RECORDS SUMMARY | 2025-06-26 10:16 | XMS_ITS | Clinical Summary ---
Author Organization [facility] Address [address] [place] [address] Care Team Providers Care Machine Zipper Trimmer Name Role Phone Dandy Rodriguez MD Primary Care Provider [phone] Source Comments [facility],non-owned Affiliates and Associated Physician Practices is amultiple site organization consisting of ambulatory clinics and hospital sitesin [place], [place], [place] and [place]. This disclosure is being madepursuant to the Care Everywhere program and may not contain all information available regarding this patient. Last updated 18.[facility] Allergies No known active allergies Medications * Be aware that medications may not be up to date on this document. Always verify current medications with the patient. Naproxen Sodium (ALEVE) 220 MG CAPS Take 1 Cap by mouth every 12 hours as needed. Active Social History Tobacco Use Types Packs/Day Years Used Date Smoking Tobacco: Never Assessed Comments Unknown Sex and Gender Information Value Date Recorded Sex Assigned at Not on file Legal Sex Female 8:42 AM WIRE WEAVER Gender Identity Not on file Sexual Orientation Not on file Last Filed Vital Signs Vital Sign Reading Time Taken Comments Blood Pressure 118/64 10/20/2012 9:52 AM WIRE WEAVER Pulse - - Temperature - - Respiratory Rate - - Oxygen Saturation - - Inhaled Oxygen Concentration - - Weight 145.6 kg (320 lb 15.8 oz) 10/20/2012 9:52 AM WIRE WEAVER Height 165 cm (5' 4.96) 10/20/2012 9:52 AM WIRE WEAVER Body Mass Index 53.48 10/20/2012 9:52 AM WIRE WEAVER Plan of Treatment Health Maintenance Due Date Last Done Comments HIV SCREENING 2010 HEPATITIS C SCREENING 04/09/2013 DTAP/TDAP/TD VACCINES (1 - Tdap) 2014 HEPATITIS B VACCINE (1 of 3 - 19+ 3-dose series) 2014 HPV VACCINE (1 - 3-dose SCDM series) 2022 COVID-19 VACCINE (1 - 2023-2 5 season) 2024 DEPRESSION SCREENING 11/03/2024 INFLUENZA VACCINE (#1) 2025 ZOSTER VACCINE (1 of 2) 2045 HIB VACCINE Aged Out No longer eligi ble based on patient's age to complete this topic MENINGOCOCCAL (Group B) VACC INE SHARED DECISION-MAKING Aged Out No longer eligibl e based on patient's age to complete this topic MENINGOCOCCAL GROUPS A/C/Y/W VACCINE Aged Out No longer eligible b ased on patient's age to complete this topic PNEUMOCOCCAL VACCINE Aged Out No long er eligible based on patient's age to complete this topic Insurance [facility] [place] [place] Address: [facility] [id number] [place] [address] [employer] Care Teams Machine Zipper Trimmer Relationship Specialty Start Date End Date Dandy Rodriguez MD PCP - General Pediatrics 10/20/12
[2025-06-26 10:18] VITALS: BP 148/115; PULSE 94; RESP 20; TEMP 36.7; O2SAT 98
== END 2025-06-26 10:43 | disposition home or self-care (01) ==
PROVIDERS: Emergency Provider Nurse Practitioner; PCP Family Medicine
DX: J06.9 Acute upper respiratory infection, unspecified (principal)
CPT/HCPCS: 99213; G0463